=== PATIENT | female | born 1985 ===

== ENCOUNTER 2018-05-20 17:01 | Emergency (ER) | payer SELFPAY ==
[2018-05-20 17:09] VITALS: BP 121/82; PULSE 82; RESP 18; TEMP 98.7; O2SAT 98
--- NOTE | 2018-05-20 17:39 | C.PDOC ---
History Of Present Illness 32 y/o healthy female c/o worsening left anterior rib pain since accidentally banging left chest wall into a shelf around [facility]. pt sts pain getting worse, worse with movement and breathing. no sob. pt takes medications at bedtime only. denies cp. Time Seen by Provider: 05/20/18 17:21 Chief Complaint (Nursing): Rib Injury History Per: Patient History/Exam Limitations: no limitations Onset/Duration Of Symptoms: Days (2 months) Current Symptoms Are (Timing): Worse Severity: Moderate Past Medical History Reviewed: Historical Data, Nursing Documentation, Vital Signs Vital Signs: Last Vital Signs Temp 98.7 F 05/20/18 17:05 Pulse 82 05/20/18 17:05 Resp 18 05/20/18 17:05 BP 121/82 05/20/18 17:05 Pulse Ox 98 05/20/18 17:05 - Medical History PMH: No Chronic Diseases Family History: States: Unknown Family Hx - Social History Hx Tobacco Use: No Hx Alcohol Use: No Hx Substance Use: No - Immunization History Hx Tetanus Toxoid Vaccination: No Hx Influenza Vaccination: No Hx Pneumococcal Vaccination: No Review Of Systems Constitutional: Negative for: Fever, Chills Cardiovascular: Negative for: Chest Pain Respiratory: Negative for: Cough, Shortness of Breath Gastrointestinal: Negative for: Nausea, Vomiting, Abdominal Pain Skin: Negative for: Bruising Neurological: Negative for: Weakness, Numbness Physical Exam - Physical Exam Appears: Non-toxic, No Acute Distress Skin: Warm, Dry, No Ecchymosis Head: Atraumatic, Normacephalic Chest: Symmetrical, No Deformity, Tenderness (left anterior rib below breast point tenderness in mid clavicular line, no crepitus or stepoff noted. ), No Subcutaneous Emphysema Cardiovascular: Rhythm Regular, No Murmur Respiratory: Normal Breath Sounds, No Accessory Muscle Use, No Rales, No Rhonchi, No Wheezing ED Course And Treatment O2 Sat by Pulse Oximetry: 98 Medical Decision Making Medical Decision Making: localized rib pain s/p accidental injury 2 months ago that is worse; eval for rib fracture. 2025 pt with neg xray for fx. incidental 3 mm opacity seen in left lateral lung. d/c home with mtorin and muscle relaxant, f/u medical clinic; Disposition Counseled Patient/Family Regarding: Studies Performed, Diagnosis, Need For Followup, Rx Given - Disposition Referrals: [facility] [Outside] Disposition: HOME/ ROUTINE Disposition Time: 20:27 Condition: GOOD Additional Instructions: [place] ibuprofeno 600 mg de mert vez cada 6-8 horas con alimentos. [place] relajante muscular a la hora de acostarse. Seguimiento con la clnica mdica si el dolor persiste. Prescriptions: Acetaminophen [Tylenol 325mg tab] 650 mg PO Q4 #50 tab Cyclobenzaprine [Cyclobenzaprine HCl] 10 mg PO HS #9 tab Ibuprofen [Motrin] 600 mg PO TID #30 tab Instructions: Bruised Rib (DC) Forms: Gen Discharge Inst [place], [facility] ([place]e) - Clinical Impression Clinical Impression: Contusion of rib on left side
--- NOTE | 2018-05-21 16:04 | RAD ---
Date of service: 05/20/2018 PROCEDURE: Radiographs of the Chest and Left Ribs. HISTORY: rib pain COMPARISON: None available. TECHNIQUE: Frontal radiograph of the chest and multiple oblique radiographs of the left ribs were obtained. FINDINGS: LEFT RIBS: No fracture or focal lesion visualized. LUNGS: Clear. PLEURA: No pneumothorax or pleural fluid. CARDIOVASCULAR: Normal cardiac size. No pulmonary vascular congestion. No aortic atherosclerotic calcification present OTHER FINDINGS: None. IMPRESSION: Unremarkable radiographs of the chest and left ribs. No left rib fracture.
== END 2018-05-20 20:40 | disposition home or self-care (01) ==
LOC: C.ER 17:01
DX: S20.212A Contusion of left front wall of thorax, initial encounter (principal); W22.03XA Walked into furniture, initial encounter
CPT/HCPCS: 71101; 81025; 96372; 99284; J1885